=== PATIENT | female | born 1935 | race Caucasian/White ===

== ENCOUNTER 2018-03-04 09:01 | Outpatient (CLI) | payer MEDICARE, OTHER ==
--- NOTE | 2018-03-04 11:36 | MRI ---
MRI LUMBAR SPINE WITHOUT CONTRAST: Technique: Multiplanar, multisequence imaging of the lumbar spine obtained. Indications: Lumbar radiculopathy. Comparison: None. FINDINGS: There is a prominent scoliotic curvature convexity to the right in the lumbar spine with apex at the L3-4 level. This results in lateral subluxations of L2 on L3 and L3 and L4 to the right. Severe degen erative disc changes are seen at all levels with loss of disc height, especially prominent at L2-3 an d L3-4. On the sagittal projection the lumbar vertebrae maintain height. No evidence of vertebral body or com pression. T12-L1: No significant disc abnormality. L1-2: Mild diffuse disc bulge. Mild facet hypertrophy. Mild central canal stenosis. Asymmetric disc b ulge laterally to the left. No significant foraminal stenosis, although mild central canal stenosis. L2-3: Slight posterior listhesis. Broad based disc bulge. Moderate facet and ligamentum hypertrophy. Moderate central canal stenosis. Severe left foraminal stenosis secondary to hypertrophic change and scoliotic curvature. L3-4: Minimal retrolisthesis. Broad based disc bulge. Prominent facet and ligamentous hypertrophy. Mo derate to severe central canal stenosis. Bilateral foraminal stenosis, more severe on the right. L4-5: Diffuse disc bulge. Prominent facet hypertrophy. Moderate to severe central canal stenosis. Mil d right foraminal stenosis secondary to disc and hypertrophic change. L5-S1: Mild diffuse disc bulge. Facet hypertrophy. Mild central canal stenosis. Mild right foraminal stenosis secondary to disc osteophyte complex and facet hypertrophy. IMPRESSION: Scoliotic curvature of the lumbar spine with convexity to the right with lateral subluxation at L2-3 and L3-4 with severe degenerative disc and vertebral body changes at these levels. This results in mo derate to severe central canal stenosis and foraminal stenosis at several levels as described above. POS: [facility]
== END 2018-03-04 09:02 | disposition home or self-care (01) ==
LOC: SCSMRI 09:01
PROVIDERS: ATTEND Anesthesiology Pain Medicine
DX: M47.26 Other spondylosis with radiculopathy, lumbar region (principal); M51.16 Intervertebral disc disorders with radiculopathy, lumbar region; M48.061 Spinal stenosis, lumbar region without neurogenic claudication; M43.16 Spondylolisthesis, lumbar region; M99.83 Other biomechanical lesions of lumbar region; M48.07 Spinal stenosis, lumbosacral region; M51.17 Intervertebral disc disorders with radiculopathy, lumbosacral region
CPT/HCPCS: 72148

== ENCOUNTER 2018-04-30 15:30 | Outpatient (CLI) | payer MEDICARE, OTHER ==
--- NOTE | 2018-04-30 16:05 | RAD ---
RIGHT KNEE 3 VIEWS: Date: 04/30/18 HISTORY: Right knee pain. FINDINGS/IMPRESSION: There are degenerative changes manifested by osteophyte formation and joint space narrowing. No fract ure, dislocation, or bony destruction seen. IMPRESSION: Right knee osteoarthritis. POS: [facility]
[2018-04-30 16:10] LABS: Anion Gap 12 mmol/L (10-20); BUN (Urea Nitrogen) 8 mg/dL (9.8-20.1); Calc. Creatinine Clearance 0 mL/min (70-130); Calcium 9.7 mg/dL (7.8-10.44); Carbon Dioxide 32 mmol/L (23-31); Chloride 101 mmol/L (98-107); Estimated GFR-MDRD 62; Glucose 90 mg/dL (83-110); Potassium 3.5 mmol/L (3.5-5.1); Sodium 141 mmol/L (136-145)
== END 2018-04-30 15:31 | disposition home or self-care (01) ==
LOC: SCSRAD 15:30
PROVIDERS: ATTEND Family Medicine
DX: M25.561 Pain in right knee (principal); E87.6 Hypokalemia; M17.11 Unilateral primary osteoarthritis, right knee
CPT/HCPCS: 36415; 80048

== ENCOUNTER 2018-06-21 05:58 | Observation (INO) | payer MEDICARE, OTHER ==
[2018-06-21] MEDS ORDERED: HYDROcodone/Acetaminophen 5/325 mg Tablet ONE (09:35)
--- NOTE | 2018-06-21 10:51 | HP ---
DATE OF ADMISSION: 06/21/2018 REQUESTING PHYSICIAN: Dr. Song ATTENDING SURGEON: Dr. Connor HISTORY OF PRESENT ILLNESS: The patient is an 83-year-old woman who last night was ambulat ing to her bathroom without using her walker when she slipped and fell hitting her right side. The nura rizzo was initially taken to [facility] in [place] where she underwent evaluation and ex amination and was noted to have right ribs 11 and 12 fracture and right hip hematoma that due to the patient's Coumadin use had a significant hematoma was causing some pain at which time she was transfe rred to our facility for evaluation for inpatient pain control and likely rehab admission. The patie nt denied any loss of consciousness, hitting her head or altered mental status. The patient also den ies any syncopal events prior to falling. ALLERGIES: None. CURRENT MEDICATIONS: Coumadin, Astelin, [place], Cymbalta, metoprolol, estradiol, Lasix, digoxin, losa rtan. PAST MEDICAL HISTORY: Atrial fibrillation, CHF, hypertension, history of basal cell skin cancer, chr onic neck and back pain, osteoarthritis, neuropathy, obstructive sleep apnea, depression. PAST SURGICAL HISTORY: x4, hysterectomy, left knee replacement, tonsillectomy. SOCIAL HISTORY: The patient lives at home with her daughter. She denies drug, tobacco or alcohol us e. REVIEW OF SYSTEMS: Ten point review of systems is negative unless otherwise stated. PHYSICAL EXAMINATION: VITAL SIGNS: Blood pressure 160/98, heart rate 85, respirations 18, oxygen saturation is 98% on room air, temperature is 98.1. GENERAL: The patient is resting comfortably in the ER bed. She is awake, alert, oriented x3. Glasg ow coma scale is 15. HEENT: Head is normocephalic, atraumatic. Eyes: Extraocular motion intact. PERRLA bilaterally. E ars are atraumatic with discharge. Nose atraumatic without discharge. Oropharynx is clear. NECK: Nontender. Trachea is midline. No JVD. CHEST: Clear to auscultation with good inspiratory and expiratory effort. HEART: Irregular, irregular, consistent with her atrial fibrillation. ABDOMEN: Soft, flat, nontender with active bowel sounds. Pelvis is stable with tenderness to palpat ion to the right hip. EXTREMITIES: Neurovascularly intact x4. Patient has 1+ pitting edema bilateral lower extremities. BACK: Tender to palpation in the right CVA area consistent with her rib fractures. LABORATORY DATA: The patient's labs are all pending. RADIOGRAPHIC REPORTS: By report, the patient has a right-sided hip hematoma with small amount of ext ravasation in the soft tissues, also has nondisplaced fractures of right ribs 11 and 12. ASSESSMENT AND PLAN: 1. Status post ground level fall. 2. History of warfarin use. 3. History of atrial fibrillation. 4. History of chronic pain. 5. History of multiple comorbidities. The plan will be to admit the patient to surgical floor. We will have rehab consultation, rib fractu re protocol, pulmonary toilet, gastritis, and mechanical VTE prophylaxis. The patient was reportedly given 5 mg of vitamin K prior to leaving the facility in [place]. We will repeat her labs in the mo rning. Repeat chest x-ray. The evaluation, examination, laboratory and radiographic findings will be discussed with Dr. Nikolas cedeno ter this dictation.
[2018-06-21] MEDS ORDERED: Rib Fracture Protocol PO SCH (13:06)
[2018-06-21] MEDS ORDERED: Dextrose 50% Abboject 50 ML SYRINGE SLOW IVP PRN (13:06)
[2018-06-21] MEDS ORDERED: Ondansetron ODT 4 MG TAB PO PRN (13:06)
[2018-06-21] MEDS ORDERED: Dextrose 5% in Water 1,000 ML IV PRN (13:06)
[2018-06-21] MEDS ORDERED: Ondansetron HCl/PF 4 MG/2 ML Vial IVP PRN (13:06)
[2018-06-21] MEDS ORDERED: hydrALAZINE 20 MG/ML VIAL SLOW IVP PRN (13:06)
[2018-06-21] MEDS ORDERED: Cyclobenzaprine 10 MG TAB PO PRN (13:15)
[2018-06-21 13:19] VITALS: BMI 23.3
[2018-06-21] MEDS: Ibuprofen 600 MG TAB PO SCH ×2 (14:57→20:51)
[2018-06-21] MEDS: Gabapentin 100 MG CAP PO SCH ×2 (14:57→20:51)
[2018-06-21] MEDS ORDERED: HYDROcodone/Acetaminophen 5/325 mg Tablet PO PRN ×2 (16:39)
[2018-06-21] MEDS: Acetaminophen 500 MG TAB PO SCH (17:22)
[2018-06-21] MEDS ORDERED: traMADol HCl 50 MG TAB PO SCH (18:00)
[2018-06-21] MEDS: Famotidine 20 MG TAB PO SCH (20:51)
[2018-06-22] MEDS: Acetaminophen 500 MG TAB PO SCH ×4 (01:00→17:12)
[2018-06-22 04:51] LABS: #Basophils 0.1 thou/uL (0.0-0.2); #Eosinphils 0.3 thou/uL (0.0-0.7); #Lymphocytes 2.7 thou/uL (1.20-3.40); #Monocytes 1.1 thou/uL (0.11-0.59); #Neutrophils 3.6 thou/uL (1.40-6.50); %Basophils 1.3 % (0.0-1.0); %Eosinophils 3.9 % (0.0-10.0); %Lymphocytes 34.7 % (21.0-51.0); %Monocytes 14.1 % (0.0-10.0); Hemoglobin 12.1 g/dL (12.0-16.0); Mean Corpuscular HGB CONC 32.1 g/dL (32.0-36.0); Mean Corpuscular Hemoglobin 31.6 pg (27.0-31.0); Mean Corpuscular Volume 98.6 fL (78.0-98.0); Mean Platelet Volume 6.8 fL (7.4-10.4); Platelet Count 219 thou/uL (130-400); RBC Distribution Width 12.4 % (11.5-14.5); Red Blood Cell (RBC) Count 3.84 mill/uL (4.20-5.40); White Blood Cell (WBC) Count 7.8 thou/uL (4.8-10.8)
[2018-06-22] MEDS: Ibuprofen 600 MG TAB PO SCH ×2 (04:57→14:50)
[2018-06-22 05:00] LABS: INR-International Normal Ratio 1.6; PTT 38.2 SEC (22.9-36.1); Prothrombin Time 18.8 SEC (12.0-14.7)
[2018-06-22 05:08] LABS: Anion Gap 9 mmol/L (10-20); BUN (Urea Nitrogen) 18 mg/dL (9.8-20.1); Calc. Creatinine Clearance 39 mL/min (70-130); Calcium 9.6 mg/dL (7.8-10.44); Carbon Dioxide 33 mmol/L (23-31); Chloride 102 mmol/L (98-107); Estimated GFR-MDRD 49; Glucose 107 mg/dL (83-110); Phosphorus 3.8 mg/dL (2.3-4.7); Potassium 3.8 mmol/L (3.5-5.1); Sodium 140 mmol/L (136-145)
[2018-06-22] MEDS ORDERED: Losartan 25 MG TAB PO SCH (09:00)
[2018-06-22] MEDS ORDERED: Estradiol 1 MG TAB PO SCH (09:00)
[2018-06-22] MEDS ORDERED: DULoxetine 60 MG CAP PO SCH (09:00)
[2018-06-22] MEDS ORDERED: Digoxin 0.125 MG TAB PO SCH (09:00)
[2018-06-22] MEDS: Gabapentin 100 MG CAP PO SCH ×3 (09:43→19:44)
[2018-06-22] MEDS: Furosemide 20 MG TAB PO SCH ×2 (09:43→09:57)
[2018-06-22] MEDS: Famotidine 20 MG TAB PO SCH ×2 (09:43→19:44)
--- NOTE | 2018-06-22 10:42 | RAD ---
CHEST 1 VIEW: HISTORY: Followup rib fracture. COMPARISON: 04/17/2018. FINDINGS: Enlarged cardiac silhouette. Pulmonary vessels and hilum are normal. Costophrenic angles are clear. No consolidation or mass. No pneumothorax or osseous abnormalities. IMPRESSION: No acute cardiopulmonary process. POS: [facility]
[2018-06-22 19:54] VITALS: BP 120/71; TEMP 97.5
--- NOTE | 2018-06-24 07:16 | HP ---
CHIEF COMPLAINT: Fall. HISTORY OF PRESENT ILLNESS: This is an 83-year-old female who evidently has been falling regularly. This is the 6th time she has had a fall in the last 6 months. She struck the side of the bathtub wi th her right side. No loss of consciousness. She is on Coumadin. She and her daughter reports she has a bad knee. They were considering doing surgery on and she has a loss of balance. PAST MEDICAL HISTORY: Significant for atrial fibrillation, congestive heart failure, hypertension, b rohit cell carcinoma, back pain, sleep apnea, and depression. PAST SURGICAL HISTORY: She has had four C-sections, hysterectomy, left total knee replacement, tonsi l and adenoidectomy. MEDICATIONS: Include Coumadin, Astelin, [place], Cymbalta, metoprolol, estradiol, Lasix, digoxin, losa rtan. SOCIAL HISTORY: She lives with her daughter and son-in-law. No tobacco, alcohol, or drugs. FAMILY HISTORY: Noncontributory. PHYSICAL EXAMINATION: VITAL SIGNS: Her temperature is 97.7, pulse 76, blood pressure 130/73. GENERAL: She is awake and alert, GCS 15. She has a periorbital ecchymosis on the right eye. HEENT: Pupils equal, round, and reactive. Extraocular motor intact. Pharynx clear. Trachea midlin e. CHEST: She has got some posterior right rib tenderness. LUNGS: Clear. ABDOMEN: Soft, nondistended, nontender. She has about 15 cm ecchymosis on the right hip. There are a couple of both nondraining clear blisters. Pulses are thready distally. Neurologically intact. LABORATORY AND X-RAY FINDINGS: Her white count is 7.8, H and H 12 and 37, platelet count 219. Elect rolytes are fine. Coags: Her PT is 18, INR 1.6. ASSESSMENT: Fall with a contusion of right hip on Plavix with some mild right rib fractures which ar e not significant. PLAN: She will need evaluation by [facility] for placement as the daughter does not feel she ca n come back to her house.
== END 2018-06-22 19:50 | disposition home or self-care (01) ==
LOC: ERS 05:58 → ERHOLD 09:17 → SJJU 12:02
PROVIDERS: ADMIT Surgery; ATTEND Surgery
DX: S70.01XA Contusion of right hip, initial encounter (principal); S22.41XA Multiple fractures of ribs, right side, initial encounter for closed fracture; I48.91 Unspecified atrial fibrillation; G89.29 Other chronic pain; M54.2 Cervicalgia; M54.9 Dorsalgia, unspecified; M19.90 Unspecified osteoarthritis, unspecified site; G47.33 Obstructive sleep apnea (adult) (pediatric); F32.9 Major depressive disorder, single episode, unspecified; G62.9 Polyneuropathy, unspecified; I11.0 Hypertensive heart disease with heart failure; I50.9 Heart failure, unspecified; Z79.01 Long term (current) use of anticoagulants; Z79.899 Other long term (current) drug therapy; W01.198A Fall on same level from slipping, tripping and stumbling with subsequent striking against other object, initial encounter
CPT/HCPCS: 71045; 80048; 83735; 84100; 85025; 85610; 85730; 94640 ×3; 96374; 97116; 97139; 97530; 99285; G0378 ×2; G8978; G8979; G8987; G8988; 36415; G0390; J0360; J7620

== ENCOUNTER 2018-07-31 16:44 | Outpatient (CLI) | payer MEDICARE ==
[2018-07-31 17:10] LABS: PTT 40.8 SEC (22.9-36.1); Prothrombin Time 23.1 SEC (12.0-14.7)
--- NOTE | 2018-07-31 18:21 | RAD ---
PA CHEST AND RIGHT RIBS FOUR VIEWS: 07/31/18 HISTORY: Patient is status post fall with right sided rib pain. Heart size is slightly enlarged. The lungs are clear of any infiltrative process. There is no signs o f pneumothorax. No rib fractures are identified. IMPRESSION: No evidence of rib fracture. POS: [facility]
== END 2018-07-31 16:45 | disposition home or self-care (01) ==
LOC: SCSRAD 16:44
PROVIDERS: ATTEND Family Medicine
DX: Z51.81 Encounter for therapeutic drug level monitoring (principal); Z79.01 Long term (current) use of anticoagulants; W19.XXXA Unspecified fall, initial encounter
CPT/HCPCS: 36415; 85610; 85730

== ENCOUNTER 2018-09-30 14:37 | Outpatient (CLI) | payer MEDICARE, OTHER ==
--- NOTE | 2018-09-30 16:04 | RAD ---
PA AND LATERAL CHEST: INDICATIONS: Cough and congestion. COMPARISON: 06/22/2018 FINDINGS: Chronic lung changes and cardiomegaly are stable. No acute air space opacity or pleural effusion is evident. No pneumothorax is evident. No acute osseous abnormality is noted. IMPRESSION: No acute cardiopulmonary abnormality. POS: [facility]
== END 2018-09-30 14:38 | disposition home or self-care (01) ==
LOC: SCSRAD 14:37
PROVIDERS: ATTEND Family Medicine
DX: R05 Cough (principal)
CPT/HCPCS: 71046

== ENCOUNTER 2018-11-14 12:44 | Emergency (ER) | payer MEDICARE, OTHER ==
[2018-11-14 13:10] LABS: Hemoglobin 14.4 g/dL (12.0-16.0); Mean Corpuscular Hemoglobin 31.7 pg (27.0-31.0); Mean Corpuscular Volume 96.1 fL (78.0-98.0); Mean Platelet Volume 7.1 fL (7.4-10.4); Platelet Count 308 thou/uL (130-400); RBC Distribution Width 11.9 % (11.5-14.5); Red Blood Cell (RBC) Count 4.54 mill/uL (4.20-5.40); White Blood Cell (WBC) Count 9.6 thou/uL (4.8-10.8)
[2018-11-14 13:27] LABS: Eosinophils 1 % (0-10); Lymphocytes 37 % (21-51); MDiff Complete? YES; Monocytes 7 % (0-10); Neutrophil 54 % (42-75); Platelet Morphology Comment Appears Adequate
--- NOTE | 2018-11-14 13:33 | RAD ---
FRONTAL VIEW CHEST: INDICATIONS: Dyspnea. COMPARISON: Two view chest from 09/30/2018. FINDINGS: There is no consolidation, effusion, or pneumothorax. The cardiac silhouette is stable. Osseous deg enerative change is present. IMPRESSION: Stable chest. POS: [facility]
[2018-11-14 13:37] LABS: ALT (SGPT) 13 U/L (8-55); AST (SGOT) 14 U/L (5-34); Albumin 4.2 g/dL (3.4-4.8); Alkaline Phosphatase 60 U/L (40-150); Anion Gap 14 mmol/L (10-20); BUN (Urea Nitrogen) 51 mg/dL (9.8-20.1); Bilirubin, Total 0.7 mg/dL (0.2-1.2); CK (CPK) 43 U/L (29-168); Calc. Creatinine Clearance 0 mL/min (70-130); Calcium 10.5 mg/dL (7.8-10.44); Carbon Dioxide 34 mmol/L (23-31); Chloride 90 mmol/L (98-107); Estimated GFR-MDRD 32; Globulin 3.3 g/dL (2.4-3.5); Glucose 93 mg/dL (83-110); Potassium 3.2 mmol/L (3.5-5.1); Protein, Total 7.5 g/dL (6.0-8.3); Sodium 135 mmol/L (136-145)
--- NOTE | 2018-11-16 12:04 | EKG ---
Test Reason : ER INDICATION Blood Pressure : / mmHG Vent. Rate : 082 BPM Atrial Rate : 071 BPM P-R Int : 000 ms QRS Dur : 090 ms QT Int : 392 ms P-R-T Axes : 000 035 196 degrees QTc Int : 457 ms Atrial fibrillation Nonspecific ST and T wave abnormality Abnormal ECG Confirmed by MARIANN CABALLERO DO ([id number]), food expeditor WILL VANEGAS ([id number]) on 11/16/2018 12:03:46 PM Referred By: ERMD Confirmed By:MARIANN CABALLERO DO
== END 2018-11-14 15:07 | disposition home or self-care (01) ==
LOC: ERS 12:44
DX: R06.02 Shortness of breath (principal); I48.91 Unspecified atrial fibrillation; I11.0 Hypertensive heart disease with heart failure; I50.9 Heart failure, unspecified; G47.30 Sleep apnea, unspecified; F32.9 Major depressive disorder, single episode, unspecified; Z79.899 Other long term (current) drug therapy; Z79.01 Long term (current) use of anticoagulants
CPT/HCPCS: 71045; 80053; 82550; 83880; 84484; 85025; 93005

== ENCOUNTER 2019-02-17 09:55 | Outpatient (CLI) | payer MEDICARE, OTHER ==
--- NOTE | 2019-02-17 11:59 | RAD ---
PA AND LATERAL VIEWS CHEST: HISTORY: Dyspnea. FINDINGS: Comparison is made to the exam of 11/14/2018. The heart size is enlarged. The aorta is tortuous. The lungs are expanded without evidence of lobar consolidation, pneumothoraces, bin pulmonary edema, or pleural effusions. There are degenerative changes in the spine. IMPRESSION: No acute process. POS: [facility]
== END 2019-02-17 09:56 | disposition home or self-care (01) ==
LOC: RAD 09:55
PROVIDERS: ATTEND Internal Medicine Critical Care Medicine
DX: R06.00 Dyspnea, unspecified (principal)
CPT/HCPCS: 71046